=== PATIENT | male | born 1945 | race African-American/Black ===

== ENCOUNTER → 2016-09-12 | Outpatient (CLI) | payer OTHER ==
[~2016-09-12] MED LIST: COREG3.125 MG PO; COUMADIN 5 MG TA5 M1 PO; DEMADEX20 MG PO; DUONEB 2.5-0.5 M3 ML INH; ISORDIL10 MG PO; LEVOTHYROXIN0.088 MG PO; LEVOTHYROXIN0.125 M1 PO; LEVOTHYROXINE0.05 MG PO; NOVOLOG100 UNIT/1 SUBQ; PACERONE 200 M200 M1 PO; PREDNISONE 20 M20 MG PO; PROTONIX40 M2 PO; SPIRONOLACTONE25 M1 PO; TORSEMIDE20 MG PO; XARELTO15 MG PO
== END ==
LOC: RAD 13:19
DX: J90 Pleural effusion, not elsewhere classified (principal); R91.8 Other nonspecific abnormal finding of lung field

== ENCOUNTER → 2016-09-18 | Outpatient (CLI) | payer OTHER ==
[2016-09-18 09:59] LABS: HEMATOCRIT 37.7 % (42.0-52.0); HEMOGLOBIN 12.5 gm/dL (14.0-18.0); MCH 25.8 pg (26.0-34.0); MCHC 33.1 g/dL (28.0-37.0); MCV 77.9 fL (80.0-100.0); RBC 4.84 mil/uL (4.50-6.00); RDW 19.2 % (10.5-14.5); WBC 6.5 thou/uL (4.0-11.0)
[2016-09-18 10:07] LABS: CALCIUM 9.4 mg/dL (8.5-10.1); CREATININE 1.8 mg/dL (0.6-1.3); POTASSIUM 3.2 mmol/L (3.5-5.1)
[2016-09-18 10:12] LABS: APTT 25.2 Seconds (24.5-32.8); INR 1.1; PROTIME 11.7 Seconds (9.3-11.4)
== END | disposition home or self-care (01) ==
LOC: ULTRA 09:25
PROVIDERS: Internal Medicine Pulmonary Disease
DX: J90 Pleural effusion, not elsewhere classified (principal)

== ENCOUNTER → 2016-10-05 | Outpatient (CLI) | payer OTHER ==
[~2016-10-05] MED LIST changes: +IMDUR 30 MG TAB30 M1 PO
== END ==
LOC: RAD 11:16
DX: J90 Pleural effusion, not elsewhere classified (principal); J98.11 Atelectasis

== ENCOUNTER → 2016-10-06 | Outpatient (CLI) | payer OTHER ==
--- NOTE | ~2016-10-06 | CNG ---
[facility] [address] [place] [address] CYTO-NONGYN REPORT PROCEDURE Name: EVERETT CANTRELL Room #: REG [facility] M.Chloe.#: [id number] Admission: 10/06/16 Date of : 49 Discharge: Report #: [id number] Path Case #: [id number] CYTOPATHOLOGY REPORT COLLECTION DATE: 10/06/2016 RECEIVED DATE: 10/11/2016 SUBMITTING PHYS: Dr. Martell Hdez OTHER PHYS: CLINICAL HISTORY: Effusion. SPECIMEN(S) RECEIVED: A.Pleural fluid * * * * * * * * * * * * FINAL DIAGNOSIS: A. Pleural fluid: No malignant epithelial cells identified. - Reactive mesothelial cells and inflammatory cells present. PATHOLOGIST: Kamini Box M.D. REPORT ELECTRONICALLY SIGNED BY: Kamini Box M.D. DATE/TIME: 10/12/2016 16:01 * * * * * * * * * * * * GROSS PATHOLOGY: A. Pleural fluid: The specimen is submitted unfixed, labeled "Everett Cantrell". Received by the Cytology Department is 25 mL of clear yellow fluid. One ThinPrep slide and a cell block were prepared. (clt 10.11.2016) CASINO RUNNER(S): TUAN Villar(ASCP) INITIAL CPT CODE(S): A; 68728, 29994 Professional services performed by [facility] at [facility] [address], [place] [address] Technical services performed by [facility] at [address], [place] [address]. [facility] [address] [place] [address], [address] [place] [address] PHONE: [phone] [facility] [address] [place] [address] CYTO-NONGYN REPORT PROCEDURE Name: EVERETT CANTRELL Room #: REG GUILLERMO Wilson.#: [id number] Admission: 10/06/16 Date of : 49 Discharge: Report #: [id number] Path Case #: [id number] DIRECTOR: Tacho Andrade M.D. * * * END OF REPORT * * *
[2016-10-06 15:23] LABS: CALCIUM 8.6 mg/dL (8.5-10.1); CREATININE 1.6 mg/dL (0.7-1.3); POTASSIUM 3.3 mmol/L (3.5-5.1)
[2016-10-06 15:27] LABS: INR 1.4; PROTIME 14.6 Seconds (9.3-11.4)
[2016-10-06 16:57] LABS: BF NUCLEATED CELLS 224; BF RBC 375
[2016-10-06 16:58] LABS: CLARITY CLEAR; COLOR YELLOW; TOTAL VOLUME 60 mL
[2016-10-06 17:16] LABS: MANUAL DIFF YES
[2016-10-06 18:00] LABS: BF NEUTROPHILS 21
[2016-10-06 18:03] LABS: BF MACROPHAGE 1
[2016-10-07 15:06] LABS: BODY FLUID ALBUMIN 1.3 g/dL (()); BODY FLUID GLUCOSE 98 mg/dL (()); BODY FLUID LDH 100 IU/L (()); BODY FLUID PROTEIN 2.3 g/dL (())
== END ==
LOC: ULTRA 14:43
PROVIDERS: Internal Medicine Pulmonary Disease
DX: J90 Pleural effusion, not elsewhere classified (principal)

== ENCOUNTER → 2016-10-10 | Outpatient (CLI) | payer OTHER | END | disposition home or self-care (01) | LOC: ULTRA 12:42 | DX: J90 Pleural effusion, not elsewhere classified (principal) ==

== ENCOUNTER → 2016-10-16 | Outpatient (CLI) | payer OTHER | LOC: RAD 13:37 | DX: J18.9 Pneumonia, unspecified organism (principal); J90 Pleural effusion, not elsewhere classified; I51.7 Cardiomegaly; J98.11 Atelectasis ==

== ENCOUNTER → 2016-10-20 | Outpatient (CLI) | payer OTHER ==
[~2016-10-20] VITALS: Ht 172.7 cm; Wt 56.7 kg
[~2016-10-20] MED LIST changes: +ALDACTONE25 MG PO; +MIRALAX17 GM PO; +VITAMIN D2000 UNIT PO
[2016-10-20 11:21] VITALS: BP 115/66
[2016-10-20 11:41] LABS: CALCIUM 8.7 mg/dL (8.5-10.1); CREATININE 1.8 mg/dL (0.7-1.3); POTASSIUM 3.7 mmol/L (3.5-5.1)
[2016-10-20 11:47] LABS: APTT 27.8 Seconds (24.5-32.8); INR 1.1; PROTIME 11.6 Seconds (9.3-11.4)
[2016-10-20 12:30] LABS: HEMATOCRIT 36.7 % (42.0-52.0); HEMOGLOBIN 12.1 gm/dL (14.0-18.0); MCH 25.8 pg (26.0-34.0); MCHC 32.9 g/dL (28.0-37.0); MCV 78.5 fL (80.0-100.0); RBC 4.68 mil/uL (4.50-6.00); RDW 19.2 % (10.5-14.5); WBC 8.1 thou/uL (4.0-11.0)
[2016-10-20 14:17] VITALS: BP 98/68
[2016-10-20 14:37] VITALS: BP 112/72
== END ==
LOC: SPEC 07:40
PROVIDERS: Internal Medicine Pulmonary Disease; Radiology Vascular & Interventional Radiology
DX: J90 Pleural effusion, not elsewhere classified (principal); I50.9 Heart failure, unspecified; J44.9 Chronic obstructive pulmonary disease, unspecified; Z87.891 Personal history of nicotine dependence

== ENCOUNTER → 2016-11-02 | Outpatient (CLI) | payer OTHER | LOC: RAD 12:40 | DX: J90 Pleural effusion, not elsewhere classified (principal) ==

== ENCOUNTER → 2016-11-08 | Outpatient (CLI) | payer OTHER ==
--- NOTE | ~2016-11-08 | 2DMMODE ---
[facility] [place] [address] 2 D/M-MODE ECHOCARDIOGRAM Name: EDUARDO CANTRELL Room #: REG CL [facility]#: [id number] Admission: 11/08/16 Attend Phys: Arthur Vidales Discharge: Date of : 49 Date of Service: 11/08/16 1517 Report #: [id number] THIS REPORT FOR: //name// APPROVED REPORT Study performed: 11/08/2016 13:00:32 EXAM: Comprehensive 2D, Doppler, and color-flow Echocardiogram Patient Location: Out-Patient Blood Pressure: 104/64 mmHg HR: 56 bpm Indications Cardiomyopathy 2D Dimensions RVDd: 36.36 mm LVEF(%): 41.77 (>50%) IVSd: 7.79 (7-11mm) LVOT Diam: 20.69 (18-24mm) LVDd: 55.21 mm PWd: 8.43 (7-11mm) Ascending Ao: 32.33 (22-36mm) LVDs: 43.77 (25-40mm) Aortic Root: 32.60 mm Brennan's LVEF: 41.77 % Volumes Left Atrial Volume (Systole) Single Plane 4CH: 66.75 mL Single Plane 2CH: 72.87 mL LA ESV Index: 47.00 mL/m2 Aortic Valve AoV Peak Markus.: 0.86 m/s AO Peak Gr.: 2.94 mmHg LVOT Max P.05 mmHg LVOT Max V: 0.72 m/s DAILY Vmax: 2.81 cm2 Mitral Valve MV Decel. Time: 111.54 ms MV E Max Markus.: 0.86 m/s IVRT: 41.52 ms Pulmonary Valve PV Peak Markus.: 0.54 m/s PV Peak Gr.: 1.15 mmHg [facility] [place] [address] 2 D/M-MODE ECHOCARDIOGRAM Name: CANTRELLEDUARDO [place] [id number] Admission: 11/08/16 Attend Phys: Arthur Vidales Discharge: Date of : 49 Date of Service: 11/08/16 1517 Report #: [id number] Tricuspid Valve TR Peak Markus.: 4.36 m/s RAP Estimate: 10.00 mmHg TR Peak Gr.: 76.00 mmHg RVSP: 86.00 mmHg Left Ventricle The left ventricle is normal size. Best contractile function occurred at base of heart There is normal left ventricular wall thickness. Left ventricular systolic function is severely decreased. LVEF is 20-25%. This study is not technically sufficient to allow evaluation of the LV diastolic function. Right Ventricle The right ventricle is normal size. Right ventricle is moderately hypokinetic. Atria Left atrium is dilated. The right atrium size is normal. Aortic Valve The aortic valve is normal in structure. Trace aortic regurgitation. There is no aortic valvular stenosis. Mitral Valve The mitral valve is normal in structure. Moderate mitral regurgitation. Tricuspid Valve The tricuspid valve is normal in structure. There is moderate tricuspid regurgitation. The right atrial pressure is estimated at 10 mmHg. There is severe pulmonary hypertension with an estimated PAP of 86mmHg. Pulmonic Valve The pulmonary valve is normal in structure. Mild pulmonic regurgitation. Great Vessels The aortic root is normal in size. The ascending aorta is normal in size. IVC is normal in size and collapses <50% with inspiration. Pericardium There is no pericardial effusion. Left and right pleural effusions noted. [facility] [address] [place] [address] 2 D/M-MODE ECHOCARDIOGRAM Name: EDUARDO CANTRELL Room #: [facility] [id number] Admission: 11/08/16 Attend Phys: Arthur Vidales Discharge: Date of : 49 Date of Service: 11/08/16 1517 Report #: [id number] <Conclusion> Left ventricular systolic function is severely decreased. Best contractile function occurred at base of heart. LVEF is 20-25%. Left atrium is dilated. The aortic valve is normal in structure. Trace aortic regurgitation, no stenosis. The mitral valve is normal in structure. Moderate mitral regurgitation. There is severe pulmonary hypertension with an estimated PAP of 85mmHg. There is no pericardial effusion. <ELECTRONICALLY SIGNED> By: Antony Garza MD, LOCATED [facility] 11/08/161516 16 16 Antony Garza MD, FAC /INF
== END ==
LOC: CV 07:08
DX: I25.5 Ischemic cardiomyopathy (principal)

== ENCOUNTER → 2016-11-16 | Outpatient (CLI) | payer OTHER | LOC: RAD 11:37 | DX: J90 Pleural effusion, not elsewhere classified (principal) ==

== ENCOUNTER → 2016-12-01 | Outpatient (CLI) | payer OTHER | LOC: RAD 14:38 | DX: J90 Pleural effusion, not elsewhere classified (principal) ==

== ENCOUNTER → 2016-12-15 | Outpatient (CLI) | payer OTHER | LOC: RAD 10:07 | DX: J90 Pleural effusion, not elsewhere classified (principal); J98.11 Atelectasis ==

== ENCOUNTER → 2016-12-27 | Outpatient (CLI) | payer OTHER | LOC: RAD 09:42 | DX: J90 Pleural effusion, not elsewhere classified (principal) ==

== ENCOUNTER → 2017-01-24 | Outpatient (CLI) | payer OTHER | LOC: RAD 14:57 | DX: J90 Pleural effusion, not elsewhere classified (principal); J98.11 Atelectasis ==

== ENCOUNTER 2017-02-05 10:59 | Inpatient (IN) | payer OTHER ==
[~2017-02-05] VITALS: Ht 170.2 cm; Wt 59.4 kg
--- NOTE | ~2017-02-05 | CNG ---
[facility] [place] [address] [place] [address] CYTO-NONGYN REPORT PROCEDURE Name: EVERETT CANTRELL Room #: 437-P ADM IN M.R.#: [id number] Admission: 02/05/17 Date of : 49 Discharge: Report #: [id number] Path Case #: [id number] CYTOPATHOLOGY REPORT COLLECTION DATE: 02/06/2017 RECEIVED DATE: 02/06/2017 SUBMITTING PHYS: Dr. Martell Hdez OTHER PHYS: Dr. Marlon Sanchez CLINICAL HISTORY: Bilateral PNA. SPECIMEN(S) RECEIVED: A.Pleural fluid, Left * * * * * * * * * * * * FINAL DIAGNOSIS: A. Left Pleural fluid: - No malignant cells identified. A few mesothelial cells and inflammation identified in the background of proteinaceous material. PATHOLOGIST: Kamini Box M.D. REPORT ELECTRONICALLY SIGNED BY: Kamini Box M.D. DATE/TIME: 02/07/2017 16:09 * * * * * * * * * * * * GROSS PATHOLOGY: A. Pleural fluid, Left: The specimen is submitted unfixed, labeled "CantrellEverett". Received by the Cytology Department is 30 mL of clear yellow fluid. One ThinPrep slide and a cell block were prepared. (clt 02.06.2017) COMMODITIES MANAGER(S): TUAN Aguilar[facility] INITIAL CPT CODE(S): A; 38222, 64779 Professional services performed by [facility] at [facility] [address], [place] [address] Technical services performed by [facility] at [address] [place] [address]., [address], [place] [address]. [facility] [address] [place] [address], [facility] [address] [place], [place] [address] [place] [address] [place] [address] CYTO-NONGYN REPORT PROCEDURE Name: EVERETT CANTRELL Room #: 437-P ADM IN M.R.#: [id number] Admission: 02/05/17 Date of : 49 Discharge: Report #: [id number] Path Case #: [id number] PHONE: [phone] DIRECTOR: Tacho Andrade M.D. * * * END OF REPORT * * *
--- NOTE | ~2017-02-05 | HC ---
[facility] [place] [address] CONSULTATION Name: EDUARDO CANTRELL Room #: 437-P [facility] IN M.R.#: [id number] Admission: 02/05/17 Attend Phys: Marlon Gonzalez MD Discharge: Date of : 49 Report #: [id number] THIS REPORT FOR: //name// CC: Marlon Sanchez DATE OF SERVICE: 02/07/2017 REASON FOR CONSULTATION: I was asked to evaluate concerning right PleurX catheter site infection. HISTORY OF PRESENT ILLNESS: The patient was a 71-year-old who presented on 02/05/2017 to the emergency room with dyspnea. He has had a PleurX catheter in his right chest for last several months due to recurring pleural effusion. He has had increasing shortness of breath and, therefore, hospitalized. On evaluation, he is noted to have purulent drainage from the exit site. He has had no tenderness along the tunnel. Denies any fever, chills or sweats. He had his left chest tapped, and his breathing has improved. Still there is concern about the right pleural catheter. ALLERGIES: None. MEDICATIONS: As noted on his MAR including vancomycin and Zosyn. PAST MEDICAL HISTORY: Ischemic cardiomyopathy, coronary artery disease, chronic anticoagulation for mural thrombus, COPD, hypothyroidism, chronic kidney disease. His ejection fraction is 20% to 25%. FAMILY HISTORY: Noncontributory. SOCIAL HISTORY: He is , past smoker. Moderate alcohol intake. REVIEW OF SYSTEMS: No GI or complaints. PHYSICAL EXAMINATION: VITAL SIGNS: Afebrile and hemodynamically stable. Blood pressure has been running anywhere from 90-110 systolic during his hospital stay. He is on 3 liters of oxygen per nasal cannula. He has had reasonable urine output. GENERAL: The patient was alert and cooperative. He was thin. No significant peripheral edema, no rash. HEENT: Unremarkable. NECK: Supple. LUNGS: Decreased breath sounds on the right with coarse breath sounds in the left base posteriorly. No rub. CARDIOVASCULAR: Heart was regular, without appreciable murmur, gallop or rub. ABDOMEN: Soft. He had mild tenderness around the right anterior abdominal exit [facility] [address] [place] [address] CONSULTATION Name: EDUARDO CANTRELL Room #: 437-P [facility] IN [facility].#: [id number] Admission: 02/05/17 Attend Phys: Marlon Gonzalez MD Discharge: Date of : 49 Report #: [id number] site from his PleurX catheter. There was some erythema and purulent drainage. The tunnel was nontender. No other hepatosplenomegaly or mass appreciated. EXTREMITIES: Unremarkable. LABORATORY STUDIES: Thoracentesis from the left done yesterday is currently pending. Sodium 140, potassium 3.5, bicarbonate 27, and creatinine 2 with a baseline of 1.7. Liver function tests normal. Hemoglobin 11.4; white count 18.9, down from 21,000 on admission; platelet count 321,000. Vancomycin trough 14. MRSA screen positive. Urine studies pending. Culture of the exit site shows MRSA growth. Blood cultures negative. Gram stain of the left pleural fluid, no organisms seen. Chest x-ray showed decreased left pleural effusion following his thoracentesis yesterday. There was residual infiltrate, atelectasis. Persistent right pleural effusion and right lower lobe infiltrate, atelectasis, unchanged. IMPRESSION AND PLAN: Exit site infection of PleurX catheter due to methicillin-resistant Staphylococcus aureus. Recurring effusions bilaterally due to his cardiomyopathy. Unclear if there is a loculated effusion on the right. We will await thoracentesis today. If chest does not drain, would proceed with CT scan of the chest. Dr. Alba had placed the right PleurX catheter in September of this year. I will have him reassess the catheter. We will continue with vancomycin. <ELECTRONICALLY SIGNED> By: Steve Paul MD 02/08/17 1054 1429 2105 Steve Paul MD /nt
--- NOTE | ~2017-02-05 | EKG ---
[address] [address] ELECTROCARDIOGRAM REPORT Name: TAMIAEDUARDO Room #: 437-P ADM IN M.R.#: [id number] Admission: 02/05/17 Attend Phys: Marlon Gonzalez MD Discharge: Date of : 49 Report #: [id number] THIS REPORT FOR: //name// [facility] ED Test Date: 2017-02-05 Test Time: 11:12:38 Pat Name: EDUARDO CANTRELL Department: Room: [facility] Gender: M Pipelines Laborer: [id number] : 1945 Requested By: Gabriel Villareal Order Number: [id number] MD: Antony Garza Measurements Intervals [place] Rate: 72 P: 39 CT: 154 QRS: 17 QRSD: 80 T: 103 QT: 607 QTc: 665 Interpretive Statements Sinus rhythm Anterior infarct, old Nonspecific T abnormalities, lateral leads Prolonged QT interval Compared to ECG 09/28/2016 12:13:07 No significant change was found Electronically Signed On 02-06-2017 10:39:19 CDT by Antony Garza [email or web address] <ELECTRONICALLY SIGNED> By: Antony Garza MD, [facility] 02/06/17 1039 1112 1112 Antony Garza MD, [facility] /EPI
--- NOTE | ~2017-02-05 | HC ---
[facility] [address] [place] [address] CONSULTATION Name: EDUARDO CANTRELL Room #: 437-P ADM IN M.R.#: [id number] Admission: 02/05/17 Attend Phys: Marlon Gonzalez MD Discharge: Date of : 49 Report #: [id number] THIS REPORT FOR: //name// CC: Marlon Sanchez REFERRING PHYSICIAN: Dr. Marlon Gonzalez. REASON FOR REFERRAL: Dyspnea and productive cough. HISTORY OF PRESENT ILLNESS: The patient is a 71-year-old -Chinese male who is well known to this physician, presents to the Emergency Room with progressive cough productive of purulent sputum. The patient admitted for possible pneumonia. A pulmonary consultation was requested. The patient is well known to this physician. He has been followed longitudinally for recurrent pleural effusion. He has known severe ischemic cardiomyopathy. He had a PleurX catheter placed in the right chest earlier this year. He has been draining the PleurX catheter every other day, withdrawing approximately 500 mL to 1000 mL. The patient has been doing relatively well since July of this year until early this morning when he was awoken with increasing dyspnea and cough productive of yellowish sputum. Otherwise, denies any febrile illness. PAST MEDICAL HISTORY: As mentioned above. Severe ischemic cardiomyopathy, coronary artery disease, recurrent bilateral pleural effusion especially on the right side, status post right PleurX catheter placement, chronic biventricular heart failure, history of mural thrombus, had been on chronic anticoagulation, COPD, tobacco use in the past, hypothyroidism, chronic kidney disease, previous echocardiogram showed an ejection fraction approximately 20-25%, generalized debility, weakness along with malnutrition. PAST SURGICAL HISTORY: As mentioned above. ALLERGIES: None noted. HOME MEDICATIONS: Reviewed. This includes DuoNeb q.i.d. p.r.n., levothyroxine, isosorbide, Aldactone, MiraLax, vitamin D supplements. FAMILY HISTORY: Is noncontributory. SOCIAL HISTORY: He is , lives with his . The patient has smoked one and a half pack a day for 50 years. He quit the past year. He drinks socially, drinking 3-4 cans of beer per day. REVIEW OF SYSTEMS: As mentioned above, it is notable for progressive debility and weakness with weight loss. Appetite has been marginal. Otherwise, 10-point [address] [address] CONSULTATION Name: EDUARDO CANTRELL Room #: 437-P [facility] IN ..#: [id number] Admission: 02/05/17 Attend Phys: Marlon Gonzalez MD Discharge: Date of : 49 Report #: [id number] system review negative. PHYSICAL EXAMINATION: GENERAL: He is awake, alert, in no apparent distress. VITAL SIGNS: Temperature is 98.9 degrees Fahrenheit, pulse is 65, respiratory rate is 22, blood pressure is 117/61 mmHg, saturation is 100%. HEENT: Normocephalic, atraumatic. NECK: Supple without any lymphadenopathy or thyromegaly. CHEST: Breath sounds are decreased in the bases. No obvious rales or wheezes. CARDIOVASCULAR: Normal S1, S2. This is no murmurs or gallop. There is no JVD. There is no carotid bruit. Pulses are 2+/4+ bilaterally. ABDOMEN: Soft, nontender, no organomegaly or masses felt. GENITOURINARY: Deferred. RECTAL: Deferred. EXTREMITIES: There is no edema, cyanosis or clubbing. LABORATORY DATA: Portable chest x-ray shows moderate size left-sided pleural effusion, small right-sided pleural effusion is seen. Electrolytes: Sodium 139, potassium 3.9, chloride 100, CO2 is 27, BUN is 20, creatinine is 2.2. WBC 21,400, hemoglobin is 13.1, no evidence of bandemia. IMPRESSION: 1. Progressive dyspnea, productive cough in this 71-year-old -Chinese male. Chest x-ray shows possible infiltrates. Etiology most likely related to acute on chronic diastolic heart failure. Chest x-ray now shows enlarging left-sided pleural effusion. Note that patient had a right PleurX catheter placement. 2. Possible pneumonia with leukocytosis. Would need to consider aspiration given patient's generalized debility. 3. Chronic obstructive pulmonary disease without obvious exacerbation. 4. Acute on chronic combined heart failure, severe ischemic cardiomyopathy with ejection fraction of 20-25%. 5. Recurrent pleural effusion status post right PleurX catheter now with moderate-sized left-sided pleural effusion, will recommend thoracentesis. 6. History of ventricular mural thrombosis, had been on anticoagulation. 7. Generalized debility, weakness, malnutrition. This is most likely related to severe heart disease. RECOMMENDATION: Agree with broad spectrum antibiotics. We will also consult Infection and Radiology for diagnostic and therapeutic thoracentesis on the left. Overall look appears to be marginal in this patient with severe ischemic cardiomyopathy along with generalized debility and malnutrition. Medical directive may need to be addressed. [facility] [address] [place] [address] CONSULTATION Name: TAMIAEDUARDO Room #: 437-P ADM IN .R.#: [id number] Admission: 02/05/17 Attend Phys: Marlon Gonzalez MD Discharge: Date of : 49 Report #: [id number] Thank you for this consultation. <ELECTRONICALLY SIGNED> By: Martell Hdez MD 02/13/17 1706 1612 2233 Martell Hdez MD /nt
--- NOTE | ~2017-02-05 | 2DMMODE ---
[facility] [address] [place] [address] 2 D/M-MODE ECHOCARDIOGRAM Name: EDUARDO CANTRELL Room #: 437-P [facility] IN .R.#: [id number] Admission: 02/05/17 Attend Phys: Marlon Gonzalez, Discharge: Date of : 49 Date of Service: 02/12/17 1546 Report #: [id number] THIS REPORT FOR: //name// APPROVED REPORT Study performed: 02/12/2017 13:47:52 EXAM: Comprehensive 2D, Doppler, and color-flow Echocardiogram Patient Location: Bedside Room #: [facility] Status: routine BSA: 1.65 BP: 99/52 mmHg Other Information Study Quality: Technically Difficult Technically limited study due to inability to position patient. Indications Pulmonary Hypertension 2D Dimensions RVDd: 36.40 mm LVEF(%): 29.88 (>50%) IVSd: 10.48 (7-11mm) LVOT Diam: 19.13 (18-24mm) LVDd: 47.01 mm PWd: 8.92 (7-11mm) Ascending Ao: 27.84 (22-36mm) LVDs: 40.43 (25-40mm) Aortic Root: 28.58 mm IVC: 18.00 mm Brennan's LVEF: 29.88 % Volumes Left Atrial Volume (Systole) Single Plane 4CH: 69.91 mL Single Plane 2CH: 54.19 mL LA ESV Index: 42.00 mL/m2 Aortic Valve AoV Peak Markus.: 1.15 m/s AO Peak Gr.: 5.30 mmHg LVOT Max P.83 mmHg LVOT Max V: 0.84 m/s DAILY Vmax: 2.10 cm2 Mitral Valve E/A Ratio: 2.7 [facility] [place] [address] 2 D/M-MODE ECHOCARDIOGRAM Name: EDUARDO CANTRELL Room #: 437-P [facility] IN .R.#: [id number] Admission: 02/05/17 Attend Phys: Marlon Gonzalez, Discharge: Date of : 49 Date of Service: 02/12/17 1546 Report #: [id number] MV Decel. Time: 130.16 ms MV E Max Markus.: 0.96 m/s MV A Markus.: 0.35 m/s MV PHT: 37.75 ms IVRT: 69.20 ms Pulmonary Valve PV Peak Markus.: 0.72 m/s PV Peak Gr.: 2.05 mmHg Pulmonary Vein P Vein S: 0.53 m/s P Vein A: 0.13 m/s P Vein D: 0.28 m/s P Vein A Dur.: 69.2 msec P Vein S/D Ratio: 1.89 Tricuspid Valve TR Peak Markus.: 3.88 m/s RAP Estimate: 10.00 mmHg TR Peak Gr.: 60.14 mmHg Left Ventricle The left ventricle is normal size. Extensive septal, anterior, and apical akinesis There is normal left ventricular wall thickness. Left ventricular systolic function is severely decreased. LVEF is 20-25%. Right Ventricle The right ventricle is normal size. Right ventricle is hypokinetic. Atria Left atrium is dilated. The right atrium size is normal. Aortic Valve The aortic valve is normal in structure. No aortic regurgitation is present. There is no aortic valvular stenosis. Mitral Valve The mitral valve is normal in structure. Mild mitral regurgitation. No evidence of mitral valve stenosis. Tricuspid Valve The tricuspid valve is normal in structure. There is moderate tricuspid regurgitation. The right atrial pressure is estimated at 10 mmHg. PAP is estimated at 70 mmHg. Pulmonic Valve The pulmonary valve is normal in structure. Mild pulmonic [address] [address] 2 D/M-MODE ECHOCARDIOGRAM Name: TAMIACHING Room #: 437-P [facility] IN [facility]#: [id number] Admission: 02/05/17 Attend Phys: Marlon Gonzalez, Discharge: Date of : 49 Date of Service: 02/12/17 1546 Report #: [id number] regurgitation. Great Vessels The aortic root is normal in size. IVC is normal in size and collapses <50% with inspiration. Pericardium There is no pericardial effusion. <Conclusion> Left ventricular systolic function is severely decreased. Extensive septal, anterior, and apical akinesis LVEF is 20-25%. Left atrium is dilated. The aortic valve is normal in structure. No aortic valvular stenosis or insufficiency. The mitral valve is normal in structure. Mild mitral regurgitation. Pulmonary artery pressure of 70mmHg There is no pericardial effusion. <ELECTRONICALLY SIGNED> By: Antony Garza MD, [facility] 02/12/17 1546 1546 1546 Antony Garza MD, FACC /INF
--- NOTE | ~2017-02-05 | HC ---
[facility] [place] [address] CONSULTATION Name: EDUARDO CANTRELL M Room #: 214-P [facility] IN M.R.#: [id number] Admission: 02/05/17 Attend Phys: Marlon Gonzalez MD Discharge: 02/19/17 Date of : 49 Report #: [id number] THIS REPORT FOR: //name// CC: Marlon Sanchez REASON FOR CONSULTATION: Congestive heart failure. HISTORY OF PRESENT ILLNESS: The patient is a 71-year-old patient of mine who I followed for quite some time. The patient was admitted on the for congestive heart failure and recurrent pleural effusions. I have been asked to see him for worsening heart failure. The patient went yesterday for a drain placement. They have noted increased low blood pressures over the past couple of days. Currently, the patient denies chest pain. He does report chronic exertional dyspnea. He denies any PND or orthopnea. He denies presyncope or syncope. PAST MEDICAL HISTORY: 1. Includes ischemic cardiomyopathy, EF of 20% based on echo in April 2017. 2. [place] [employer] functional class 3 heart failure. 3. Coronary artery disease, status post CO with a nuclear stress test in 05/2016 showing an EF of 30% with inferior and anterior MIs. 4. AFib, on amiodarone. 5. Left ventricular thrombus, on warfarin and Xarelto in the past. 6. Chronic renal insufficiency requiring temporary dialysis. 7. Severe hypothyroidism. 8. Chronic obstructive pulmonary disease. 9. Echo 08/2016, EF of 25% with a severe pulmonary hypertension. 10. MRSA colonization. 11. Prior decubitus ulcer. 12. Echo 10/2016, EF of 20-25% with PA pressures of 100. 13. ____ PleurX implant for recurrent pleural effusions. SOCIAL HISTORY: Does not smoke. FAMILY HISTORY: Noncontributory. ALLERGIES: None. MEDICATIONS: Have been reviewed and his Lasix, Coreg, Imdur, and Aldactone are on hold due to hypotension. He is on Zosyn and vancomycin for antibiotics and he is also on Synthroid. REVIEW OF SYSTEMS: GENERAL: No fevers or chills. HEENT: No blurred vision and sore throat. CARDIOVASCULAR: As above. [facility] [address] [place] [address] CONSULTATION Name: TAMIAEDUARDO Room #: 214-P [facility]#: [id number] Admission: 02/05/17 Attend Phys: Marlon Gonzalez MD Discharge: 02/19/17 Date of : 49 Report #: [id number] PULMONARY: He does have some shortness of breath and some cough. GASTROINTESTINAL: No nausea or vomiting. GENITOURINARY: No dysuria. MUSCULOSKELETAL: No myalgias or arthralgias. ENDOCRINE: No heat or cold intolerance. PHYSICAL EXAMINATION: VITAL SIGNS: Temperature is 36.4, pulse 76, respiration 16, blood pressure 87/50, pulse ox 97%. GENERAL: He is thin, cachectic, in no acute distress. HEENT: Oropharynx is clear. Sclerae anicteric. NECK: Supple, with no thyromegaly. HEART: Regular rate and rhythm with no murmurs, rubs or gallops. He does not have any elevated jugular venous pressure, nor does he have a positive hepatojugular reflex. ABDOMEN: Soft, nontender, nondistended. EXTREMITIES: There is no clubbing, cyanosis, edema. NEUROLOGIC: Cranial nerves 2-12 are intact. LABORATORY DATA: Sodium is 139, potassium 4.6, BUN 52, creatinine 2.2. White count is 45.9, hemoglobin is 10, platelets are 662. Coags: INR is 1.7. Chest x-ray shows a new drain placed and evidence of pneumothorax. His echo shows an EF of 20-25% with PA pressures were 70. ASSESSMENT AND PLAN: 1. Acute on chronic systolic heart failure. 2. Ischemic cardiomyopathy. 3. Coronary artery disease. 4. Recurrent pleural effusions. 5. Chronic renal insufficiency. 6. Chronic obstructive pulmonary disease. SUMMARY: The patient is a 71-year-old with severe ischemic cardiomyopathy and acute on chronic LV systolic heart failure. The patient has become progressively hypotensive this hospitalization. At this time, I would hold diuretics and all cardiac medications including beta blockers. We can continue with the amiodarone for now. In terms of his cardiomyopathy, there are limited options at this point. Given his multiple comorbidities, I do not feel that he is a good candidate for advanced options for his cardiomyopathy. We will continue with conservative management. As per my previous discussions with the patient, he has not wanted a defibrillator and at that point, I do not feel that [address] [place] [address] CONSULTATION Name: EDUARDO CANTRELL Room #: 214-P [facility] IN M.R.#: [id number] Admission: 02/05/17 Attend Phys: Marlon Gonzalez MD Discharge: 02/19/17 Date of : 49 Report #: [id number] he is a candidate for defibrillator as I do not anticipate that his life expectancy is greater than 1 year. We will continue to follow. <ELECTRONICALLY SIGNED> By: Arthur Vidales MD 02/22/17 1107 [id number] Arthur Vidales MD /nt
[2017-02-05 11:02] VITALS: BP 114/87
[2017-02-05 11:33] LABS: HEMATOCRIT 39.7 % (42.0-52.0); HEMOGLOBIN 13.1 gm/dL (14.0-18.0); MCH 27.8 pg (26.0-34.0); MCV 84.4 fL (80.0-100.0); PLATELET COUNT 426 thou/uL (150-400); RBC 4.71 mil/uL (4.50-6.00); RDW 16.1 % (10.5-14.5); WBC 21.4 thou/uL (4.0-11.0)
[2017-02-05 11:34] LABS: MANUAL DIFF YES
[2017-02-05 11:40] LABS: ANION GAP 12 mmol/L (7-16); BUN 20 mg/dL (7-18); CALCIUM 9.1 mg/dL (8.5-10.1); CHLORIDE 100 mmol/L (98-107); CO2 27 mmol/L (21-32); CREATININE 2.2 mg/dL (0.7-1.3); GLUCOSE 116 mg/dL (74-106); POTASSIUM 3.5 mmol/L (3.5-5.1); SODIUM 139 mmol/L (136-145)
[2017-02-05] MEDS ORDERED: ISOSORBIDE MONO30 M1 PO (11:49)
[2017-02-05] MEDS ORDERED: DUONEB 2.5-0.5 M3 ML INH (11:51)
[2017-02-05 11:56] LABS: NT-PRO BRAIN NAT PEPTIDE 11701 pg/mL (<300); TROPONIN-I < 0.04 ng/mL (<0.04-0.07)
[2017-02-05 12:07] LABS: ANISOCYTOSIS 1+; TOTAL CELL COUNT 100
[2017-02-05 12:45] VITALS: BP 114/70
[2017-02-05 13:13] VITALS: BP 108/54
[2017-02-05 13:20] VITALS: BP 117/61
[2017-02-05 16:00] VITALS: BP 126/66
[2017-02-05 17:35] LABS: APTT 43.6 Seconds (24.5-32.8); FIBRINOGEN 516.3 mg/dL (210-360); INR 1.7; PROTIME 16.9 Seconds (9.3-11.4)
[2017-02-05 19:39] VITALS: BP 107/61
[2017-02-06 05:20] VITALS: BP 98/57
[2017-02-06 05:39] LABS: HEMATOCRIT 33.8 % (42.0-52.0); MCH 27.8 pg (26.0-34.0); MCHC 32.8 g/dL (28.0-37.0); MCV 84.6 fL (80.0-100.0); RBC 3.99 mil/uL (4.50-6.00); RDW 15.2 % (10.5-14.5); WBC 19.3 thou/uL (4.0-11.0)
[2017-02-06 05:40] LABS: HEMOGLOBIN 11.1 gm/dL (14.0-18.0); MANUAL DIFF YES; PLATELET COUNT 326 thou/uL (150-400)
[2017-02-06 05:55] LABS: CALCIUM 8.5 mg/dL (8.5-10.1); POTASSIUM 3.7 mmol/L (3.5-5.1)
[2017-02-06 08:31] LABS: PLATELET ESTIMATE NORMAL; TOTAL CELL COUNT 100
[2017-02-06 08:59] VITALS: BP 101/56
[2017-02-06 14:18] LABS: CLARITY CLEAR; COLOR YELLOW; TOTAL VOLUME 60 mL
[2017-02-06 14:38] LABS: BF NUCLEATED CELLS 91; BF RBC 102
[2017-02-06 15:18] LABS: BF MACROPHAGE 49; BF NEUTROPHILS 1; MANUAL DIFF YES
[2017-02-06 16:22] VITALS: BP 110/58
[2017-02-06 20:02] VITALS: BP 99/46
[2017-02-07] VITALS: BP 111/54
[2017-02-07 04:00] VITALS: BP 94/41
[2017-02-07 04:09] LABS: HEMATOCRIT 33.5 % (42.0-52.0); HEMOGLOBIN 11.4 gm/dL (14.0-18.0); MCH 28.6 pg (26.0-34.0); MCHC 34.2 g/dL (28.0-37.0); MCV 83.7 fL (80.0-100.0); RDW 15.6 % (10.5-14.5); WBC 18.9 thou/uL (4.0-11.0)
[2017-02-07 04:19] LABS: CALCIUM 8.5 mg/dL (8.5-10.1); POTASSIUM 3.5 mmol/L (3.5-5.1)
[2017-02-07 08:39] VITALS: BP 93/48
[2017-02-07 14:04] VITALS: BP 93/48
[2017-02-07 15:07] LABS: BODY FLUID ALBUMIN 1.1 g/dL (()); BODY FLUID AMYLASE 41 U/L (()); BODY FLUID GLUCOSE 105 mg/dL (()); BODY FLUID LDH 56 IU/L (()); BODY FLUID PROTEIN 2.3 g/dL (())
[2017-02-07 16:45] LABS: CLARITY CLOUDY; COLOR AMBER; TOTAL VOLUME 67 mL
[2017-02-07 17:12] LABS: BF NUCLEATED CELLS 3328; BF RBC 8382
[2017-02-07 18:31] LABS: BF NEUTROPHILS 89
[2017-02-07 18:36] LABS: BF MACROPHAGE 8
[2017-02-07 18:43] LABS: MANUAL DIFF YES
[2017-02-07 20:30] VITALS: BP 95/51
[2017-02-08 05:00] VITALS: BP 91/45
[2017-02-08 07:14] LABS: HEMATOCRIT 30.3 % (42.0-52.0); MCH 27.7 pg (26.0-34.0); MCHC 32.9 g/dL (28.0-37.0); MCV 84.2 fL (80.0-100.0); RBC 3.6 mil/uL (4.50-6.00); RDW 15.4 % (10.5-14.5); WBC 16.2 thou/uL (4.0-11.0)
[2017-02-08 07:26] LABS: CALCIUM 8.3 mg/dL (8.5-10.1); CREATININE 1.7 mg/dL (0.7-1.3); POTASSIUM 3.3 mmol/L (3.5-5.1)
[2017-02-08 08:00] VITALS: BP 96/51
[2017-02-08 15:07] LABS: BODY FLUID ALBUMIN 1.9 g/dL (()); BODY FLUID AMYLASE 32 U/L (()); BODY FLUID PROTEIN 3.2 g/dL (())
[2017-02-08 16:00] VITALS: BP 107/57
[2017-02-08 20:00] VITALS: BP 85/45
[2017-02-09 03:31] VITALS: BP 97/52
[2017-02-09 06:36] LABS: HEMATOCRIT 28.4 % (42.0-52.0); HEMOGLOBIN 9.4 gm/dL (14.0-18.0); MCH 27.9 pg (26.0-34.0); MCHC 33.1 g/dL (28.0-37.0); MCV 84.1 fL (80.0-100.0); RBC 3.37 mil/uL (4.50-6.00); WBC 14.5 thou/uL (4.0-11.0)
[2017-02-09 06:45] LABS: CALCIUM 8.6 mg/dL (8.5-10.1); CREATININE 1.7 mg/dL (0.7-1.3); POTASSIUM 3.3 mmol/L (3.5-5.1)
[2017-02-09 08:25] VITALS: BP 95/48
[2017-02-09 09:12] LABS: BODY FLUID GLUCOSE 18 mg/dL (()); BODY FLUID LDH 1076 IU/L (())
[2017-02-09 16:09] VITALS: BP 109/54
[2017-02-09 19:59] VITALS: BP 105/52
[2017-02-10 03:30] VITALS: BP 97/51
[2017-02-10 06:03] LABS: HEMATOCRIT 28.4 % (42.0-52.0); HEMOGLOBIN 9.3 gm/dL (14.0-18.0); MCH 27.4 pg (26.0-34.0); MCHC 32.8 g/dL (28.0-37.0); MCV 83.5 fL (80.0-100.0); RBC 3.4 mil/uL (4.50-6.00); RDW 15.3 % (10.5-14.5); WBC 16.6 thou/uL (4.0-11.0)
[2017-02-10 06:13] LABS: CALCIUM 8.5 mg/dL (8.5-10.1); CREATININE 1.7 mg/dL (0.7-1.3); POTASSIUM 3.4 mmol/L (3.5-5.1)
[2017-02-10 08:35] VITALS: BP 107/61
[2017-02-10 16:00] VITALS: BP 116/61
[2017-02-10 19:52] VITALS: BP 108/54
[2017-02-11 04:58] LABS: HEMOGLOBIN 8.6 gm/dL (14.0-18.0); MCH 27.5 pg (26.0-34.0); MCHC 33.2 g/dL (28.0-37.0); MCV 82.9 fL (80.0-100.0); RBC 3.13 mil/uL (4.50-6.00); RDW 14.9 % (10.5-14.5); WBC 19.9 thou/uL (4.0-11.0)
[2017-02-11 05:10] LABS: CALCIUM 8.5 mg/dL (8.5-10.1); CREATININE 1.8 mg/dL (0.7-1.3); POTASSIUM 3.3 mmol/L (3.5-5.1)
[2017-02-11 06:13] VITALS: BP 94/52
[2017-02-11 08:35] VITALS: BP 90/51
[2017-02-11 16:46] VITALS: BP 98/55
[2017-02-11 19:30] VITALS: BP 100/54
[2017-02-12 04:00] VITALS: BP 95/45
[2017-02-12 05:45] LABS: HEMOGLOBIN 8.6 gm/dL (14.0-18.0); MCH 27.5 pg (26.0-34.0); MCV 83.4 fL (80.0-100.0); RBC 3.11 mil/uL (4.50-6.00); RDW 15.2 % (10.5-14.5); WBC 21.8 thou/uL (4.0-11.0)
[2017-02-12 05:56] LABS: CALCIUM 8.5 mg/dL (8.5-10.1); CREATININE 1.7 mg/dL (0.7-1.3); POTASSIUM 3.8 mmol/L (3.5-5.1)
[2017-02-12 07:35] VITALS: BP 95/45
[2017-02-12 08:00] VITALS: BP 104/52
[2017-02-12 16:00] VITALS: BP 111/60
[2017-02-12 20:05] VITALS: BP 91/50
[2017-02-13 04:30] VITALS: BP 91/50
[2017-02-13 05:35] LABS: HEMATOCRIT 29.1 % (42.0-52.0); HEMOGLOBIN 9.6 gm/dL (14.0-18.0); MCH 27.5 pg (26.0-34.0); MCHC 32.9 g/dL (28.0-37.0); MCV 83.7 fL (80.0-100.0); RBC 3.48 mil/uL (4.50-6.00); RDW 15.1 % (10.5-14.5); WBC 23.9 thou/uL (4.0-11.0)
[2017-02-13 05:45] LABS: CALCIUM 8.6 mg/dL (8.5-10.1); CREATININE 1.9 mg/dL (0.7-1.3); POTASSIUM 4.2 mmol/L (3.5-5.1)
[2017-02-13 08:00] VITALS: BP 99/53
[2017-02-13 16:00] VITALS: BP 122/74
[2017-02-13 20:17] VITALS: BP 98/52
[2017-02-14 03:16] VITALS: BP 91/50
[2017-02-14 04:49] LABS: HEMATOCRIT 27.9 % (42.0-52.0); HEMOGLOBIN 9.2 gm/dL (14.0-18.0); MCH 27.2 pg (26.0-34.0); MCHC 32.9 g/dL (28.0-37.0); MCV 82.8 fL (80.0-100.0); RBC 3.37 mil/uL (4.50-6.00); RDW 15.5 % (10.5-14.5); WBC 27.1 thou/uL (4.0-11.0)
[2017-02-14 05:00] LABS: CALCIUM 8.6 mg/dL (8.5-10.1); CREATININE 1.9 mg/dL (0.7-1.3); POTASSIUM 3.9 mmol/L (3.5-5.1)
[2017-02-14 07:35] VITALS: BP 100/58
[2017-02-14 16:31] VITALS: BP 102/53
[2017-02-14 20:10] VITALS: BP 89/49
[2017-02-14 22:38] VITALS: BP 91/45
[2017-02-15 04:08] VITALS: BP 89/42
[2017-02-15 05:52] LABS: HEMATOCRIT 28.4 % (42.0-52.0); HEMOGLOBIN 9.3 gm/dL (14.0-18.0); MCH 27.2 pg (26.0-34.0); MCHC 32.9 g/dL (28.0-37.0); MCV 82.7 fL (80.0-100.0); RBC 3.44 mil/uL (4.50-6.00); RDW 15.6 % (10.5-14.5)
[2017-02-15 06:09] LABS: CALCIUM 8.4 mg/dL (8.5-10.1); CREATININE 2.1 mg/dL (0.7-1.3); POTASSIUM 3.7 mmol/L (3.5-5.1)
[2017-02-15 08:27] VITALS: BP 89/44
[2017-02-15 10:20] VITALS: BP 89/48
[2017-02-15 17:50] VITALS: BP 102/60
[2017-02-15 20:04] VITALS: BP 99/60
[2017-02-16 00:12] VITALS: BP 89/51
[2017-02-16 02:44] LABS: URINE BILIRUBIN NEGATIVE (Negative); URINE BLOOD NEGATIVE (Negative); URINE COLOR YELLOW; URINE GLUCOSE-RANDOM* NEGATIVE (Negative); URINE KETONES NEGATIVE (Negative); URINE LEUKOCYTES-REFLEX NEGATIVE (Negative); URINE PROTEIN (DIPSTICK) NEGATIVE (Negative); URINE UROBILINOGEN 0.2 E.U./dl (0.2-1.0)
[2017-02-16 03:47] VITALS: BP 81/46
[2017-02-16 06:47] LABS: HEMOGLOBIN 10.6 gm/dL (14.0-18.0); MCH 27.5 pg (26.0-34.0); MCHC 32.9 g/dL (28.0-37.0); MCV 83.5 fL (80.0-100.0); RBC 3.84 mil/uL (4.50-6.00); RDW 15.5 % (10.5-14.5)
[2017-02-16 06:52] LABS: WBC 45.9 thou/uL (4.0-11.0)
[2017-02-16 08:15] VITALS: BP 87/50
[2017-02-16 08:31] LABS: CALCIUM 8.4 mg/dL (8.5-10.1); CREATININE 2.2 mg/dL (0.7-1.3); POTASSIUM 4.6 mmol/L (3.5-5.1)
[2017-02-16 11:13] VITALS: BP 93/51
[2017-02-16 16:49] VITALS: BP 97/58
[2017-02-16 19:23] VITALS: BP 95/59
[2017-02-17 03:25] VITALS: BP 92/54
[2017-02-17 04:19] LABS: HEMOGLOBIN 9.4 gm/dL (14.0-18.0); MCHC 33.3 g/dL (28.0-37.0)
[2017-02-17 04:22] LABS: HEMATOCRIT 28.1 % (42.0-52.0); MCH 27.2 pg (26.0-34.0); MCV 81.7 fL (80.0-100.0); RBC 3.44 mil/uL (4.50-6.00); RDW 15.5 % (10.5-14.5); WBC 39.1 thou/uL (4.0-11.0)
[2017-02-17 04:31] LABS: CALCIUM 8.2 mg/dL (8.5-10.1); CREATININE 2.2 mg/dL (0.7-1.3); POTASSIUM 3.9 mmol/L (3.5-5.1)
[2017-02-17 07:46] VITALS: BP 94/54
[2017-02-17 14:59] VITALS: BP 95/58
[2017-02-17 20:11] VITALS: BP 101/54
[2017-02-18 03:44] VITALS: BP 89/54
[2017-02-18 08:05] VITALS: BP 85/49
[2017-02-18 20:08] VITALS: BP 105/55
[2017-02-18 20:43] VITALS: BP 109/43
[2017-02-19 03:55] VITALS: BP 93/53
[2017-02-19 08:18] VITALS: BP 99/58
[2017-02-19] MEDS ORDERED: VIBRAMYCIN 100100 M2 PO (11:45)
[2017-02-19] MEDS ORDERED: PULMICORT0.5 MG/22 INH (11:45)
[2017-02-19] MEDS ORDERED: XARELTO15 MG PO ×2 (11:45→12:01)
[2017-02-19 12:16] VITALS: BP 110/62
[2017-02-19 12:48] VITALS: BP 110/62
[2017-02-19 12:57] VITALS: BP 86/54
[2017-02-19 15:22] VITALS: BP 91/56
== END 2017-02-19 17:30 | disposition hospice, home (50) | DRG 871 ==
LOC: ER 10:59 → 4S 12:24 → EROBS 12:24 → 4S 13:17 → 2N 02-15 15:57
PROVIDERS: Emergency Medicine; Hospitalist; Internal Medicine; Internal Medicine Pulmonary Disease; Nurse Practitioner; Specialist
PROC: 0W9B3ZZ Drainage of Left Pleural Cavity, Percutaneous Approach (ICD-10-PCS; 2017-02-06)
PROC: 0WP9X0Z Removal of Drainage Device from Right Pleural Cavity, External Approach (ICD-10-PCS; principal; 2017-02-07)
PROC: 0W9930Z Drainage of Right Pleural Cavity with Drainage Device, Percutaneous Approach (ICD-10-PCS; 2017-02-12)
PROC: 3E03317 Introduction of Other Thrombolytic into Peripheral Vein, Percutaneous Approach (ICD-10-PCS; 2017-02-13)
DX: A41.9 Sepsis, unspecified organism (principal); J18.9 Pneumonia, unspecified organism; I50.43 Acute on chronic combined systolic (congestive) and diastolic (congestive) heart failure; J96.21 Acute and chronic respiratory failure with hypoxia; E43 Unspecified severe protein-calorie malnutrition; J44.0 Chronic obstructive pulmonary disease with (acute) lower respiratory infection; J90 Pleural effusion, not elsewhere classified; Z66 Do not resuscitate; I25.10 Atherosclerotic heart disease of native coronary artery without angina pectoris; I25.5 Ischemic cardiomyopathy; E03.9 Hypothyroidism, unspecified; I48.91 Unspecified atrial fibrillation; I27.2 Other secondary pulmonary hypertension; I51.3 Intracardiac thrombosis, not elsewhere classified; N18.3 Chronic kidney disease, stage 3 (moderate); Z51.5 Encounter for palliative care; K59.00 Constipation, unspecified; Z87.891 Personal history of nicotine dependence; Z79.899 Other long term (current) drug therapy; Z22.322 Carrier or suspected carrier of Methicillin resistant Staphylococcus aureus; Z98.42 Cataract extraction status, left eye; Z98.41 Cataract extraction status, right eye; Z68.20 Body mass index [BMI] 20.0-20.9, adult
CPT/HCPCS: 10081; 10100; 50010; 50101; 50386; 50417; 54118; 56526; 56528; 62110; 62900; 70005